=== PATIENT | male | born 1955 | race Caucasian/White ===

== ENCOUNTER 2016-09-19 11:23 | Day surgery (SDC) | payer OTHER ==
--- NOTE | ~2016-09-19 | EGD ---
EGD REPORT [facility] [address] [place] [address] NAME: SATISH COFFMAN : [birth year] STATUS : REG [facility]#: [id number] AGE: 61 ADM/REG DATE : 09/19/16 MR#: [id number] REPORT SERV DATE: 09/19/16 DICTATED BY: YUNG HARRIS DATE: 09/19/16 REPORT STATUS : Draft TRANSCRIBED BY: [facility] DATE: 09/19/16 Endoscopy Center Patient Name: Satish Coffman Date of : 1955 Attending MD: KARL HARRIS MD Procedure Date No Time: 09/19/2016 Procedure: Upper GI endoscopy Indications: Dysphagia, Gastro-esophageal reflux disease, Chronic cough Referring MD: FRANKIE BORJA MD Medicines: See the Anesthesia note for documentation of the administered medications Complications: No immediate complications. Estimated blood loss: Minimal. Procedure: Pre-Anesthesia Assessment: - ASA Grade Assessment: III - A patient with severe systemic disease. - Prior to the procedure, a History and Physical was performed, and patient medications and allergies were reviewed. The patient's tolerance of previous anesthesia was also reviewed. The risks and benefits of the procedure and the sedation options and risks were discussed with the patient. All questions were answered, and informed consent was obtained. Prior Anticoagulants: The patient has taken aspirin and ibuprofen, last doses were 2 days prior to procedure. After reviewing the risks and benefits, the patient was deemed in satisfactory condition to undergo the procedure. After obtaining informed consent, the endoscope was passed under direct vision. Throughout the procedure, the patient's blood pressure, pulse, and oxygen saturations were monitored continuously. The GIF H190 [id number] was introduced through the mouth, and advanced to the second part of duodenum. The upper GI endoscopy was accomplished without difficulty. The patient tolerated the procedure well. The upper GI endoscopy was accomplished without difficulty. The patient tolerated the procedure well. Findings: The examined duodenum was normal. Diffuse moderate inflammation characterized by congestion (edema) and erythema was found in the gastric antrum. Biopsies were taken with a cold forceps for histology. The cardia and gastric fundus were normal on retroflexion. EGD REPORT [address] [address] NAME: SATISH COFFMAN : [birth year] STATUS : REG [facility] [place] PAT#: [id number] AGE: 61 ADM/REG DATE : 09/19/16 MR#: [id number] REPORT SERV DATE: 09/19/16 DICTATED BY: YUNG HARRIS DATE: 09/19/16 REPORT STATUS : Draft TRANSCRIBED BY: [facility] DATE: 09/19/16 Diffuse mild erythema was found at the gastroesophageal junction. Biopsies were taken with a cold forceps for histology. The examined esophagus was normal. A guidewire was placed and the scope was withdrawn. Dilation was performed with a Savary dilator with no resistance at 54 Fr. Estimated blood loss: none. Impression: - Normal examined duodenum. - Gastritis. Biopsied. - Erythema at the gastroesophageal junction. Biopsied. - Normal esophagus. Dilated. Recommendation: - Patient has a contact number available for emergencies. The signs and symptoms of potential delayed complications were discussed with the patient. Return to normal activities tomorrow. Written discharge instructions were provided to the patient. - Regular diet. - Discharge patient to home. - Continue present medications. - Await pathology results. Procedure Code(s): --- Professional --- 14699, Esophagogastroduodenoscopy, flexible, transoral; with insertion of guide wire followed by passage of dilator(s) through esophagus over guide wire 08973, Esophagogastroduodenoscopy, flexible, transoral; with biopsy, single or multiple Diagnosis Code(s): --- Professional --- K29.70, Gastritis, unspecified, without bleeding K22.9, Disease of esophagus, unspecified R13.10, Dysphagia, unspecified K21.9, Gastro-esophageal reflux disease without esophagitis R05, Cough CPT copyright 2013 [employer]. All rights reserved. The codes documented in this report are preliminary and upon dye mixer review may be revised to meet current compliance requirements. KARL HARRIS MD 09/19/2016 1:16 PM This report has been signed electronically. Number of Addenda: 0 EGD REPORT [facility] [address] [place] [address] NAME: SATISH COFFMAN : [birth year] STATUS : REG [facility] [place] PAT#: [id number] AGE: 61 ADM/REG DATE : 09/19/16 MR#: [id number] REPORT SERV DATE: 09/19/16 DICTATED BY: YUNG HARRIS DATE: 09/19/16 REPORT STATUS : Draft TRANSCRIBED BY: [employer] DATE: 09/19/16 Note Initiated On: 09/19/2016 12:58 PM Scope Withdrawal Time 0 hours 0 minutes 0 seconds [address] [place] [id number]
--- NOTE | ~2016-09-19 | EGD ---
EGD REPORT [facility] [address] [place] [address] NAME: SATISH COFFMAN : 53 STATUS : REG [facility]#: [id number] AGE: 61 ADM/REG DATE : 09/19/16 MR#: [id number] REPORT SERV DATE: 09/19/16 DICTATED BY: YUNG HARRIS DATE: 09/19/16 REPORT STATUS : Draft [facility]: [facility] DATE: 09/19/16 Endoscopy Center Patient Name: Satish Coffman Date of : 1955 Attending MD: KARL HARRIS MD Procedure Date No Time: 09/19/2016 Procedure: Colonoscopy Indications: Personal history of colonic polyps Referring MD: FRANKIE BORJA MD Medicines: See the Anesthesia note for documentation of the administered medications Complications: No immediate complications. Estimated blood loss: None. Procedure: Pre-Anesthesia Assessment: - ASA Grade Assessment: III - A patient with severe systemic disease. - Prior to the procedure, a History and Physical was performed, and patient medications and allergies were reviewed. The patient's tolerance of previous anesthesia was also reviewed. The risks and benefits of the procedure and the sedation options and risks were discussed with the patient. All questions were answered, and informed consent was obtained. Prior Anticoagulants: The patient has taken aspirin and ibuprofen, last doses were 2 days prior to procedure. After reviewing the risks and benefits, the patient was deemed in satisfactory condition to undergo the procedure. After I obtained informed consent, the scope was passed under direct vision. Throughout the procedure, the patient's blood pressure, pulse, and oxygen saturations were monitored continuously. The PCF [id number] was introduced through the anus and advanced to the cecum, identified by appendiceal orifice and ileocecal valve. The ileocecal valve, appendiceal orifice and rectum were photographed. The entire colon was examined. The colonoscopy was performed without difficulty. The patient tolerated the procedure well. The quality of the bowel preparation was adequate. Findings: The perianal and digital rectal examinations were normal. A sessile polyp was found in the cecum. The polyp was diminutive in size. The polyp was removed with a cold biopsy forceps. Resection and retrieval were complete. A sessile polyp was found in the transverse colon. The polyp was small in size. The polyp was removed with a cold biopsy forceps. Resection and EGD REPORT [address] [address] NAME: SATISH COFFMAN : 53 STATUS : REG [facility]#: [id number] AGE: 61 ADM/REG DATE : 09/19/16 MR#: [id number] REPORT SERV DATE: 09/19/16 DICTATED BY: YUNG HARRIS DATE: 09/19/16 REPORT STATUS : Draft TRANSCRIBED BY: [facility] DATE: 09/19/16 retrieval were complete. A sessile polyp was found in the sigmoid colon. The polyp was small in size. The polyp was removed with a cold biopsy forceps. Resection and retrieval were complete. Non-bleeding internal hemorrhoids were found during retroflexion and were Grade I (internal hemorrhoids that do not prolapse). No other significant abnormalities were identified in a careful examination of the remainder of the colon. Impression: - One diminutive polyp in the cecum. Resected and retrieved. - One small polyp in the transverse colon. Resected and retrieved. - One small polyp in the sigmoid colon. Resected and retrieved. - Non-bleeding internal hemorrhoids. Recommendation: - Patient has a contact number available for emergencies. The signs and symptoms of potential delayed complications were discussed with the patient. Return to normal activities tomorrow. Written discharge instructions were provided to the patient. - Regular diet. - Discharge patient to home. - Continue present medications. - Await pathology results. - Repeat colonoscopy in 5-10 years for surveillance based on pathology results. Procedure Code(s): --- Professional --- 56851, Colonoscopy, flexible, proximal to splenic flexure; with biopsy, single or multiple Diagnosis Code(s): --- Professional --- D12.5, Benign neoplasm of sigmoid colon D12.3, Benign neoplasm of transverse colon D12.0, Benign neoplasm of cecum K64.0, First degree hemorrhoids Z86.010, Personal history of colonic polyps CPT copyright 2013 [employer]. All rights reserved. The codes documented in this report are preliminary and upon dude ranch manager review may be revised to meet current compliance requirements. EGD REPORT [facility] [address] [address] NAME: SATISH COFFMAN : [birth year] STATUS : REG [facility] [place] PAT#: [id number] AGE: 61 ADM/REG DATE : 09/19/16 MR#: [id number] REPORT SERV DATE: 09/19/16 DICTATED BY: YUNG HARRIS DATE: 09/19/16 REPORT STATUS : Draft TRANSCRIBED BY: [employer] DATE: 09/19/16 KARL HARRIS MD 09/19/2016 1:32 PM This report has been signed electronically. Number of Addenda: 0 Note Initiated On: 09/19/2016 12:55 PM Scope Withdrawal Time 0 hours 12 minutes 14 seconds [address] [id number]
[~2016-09-19 11:23] MED LIST: ALLEGRA180 PO; ASAB PO; ATIVAN2 MG PO; ATRONASAL6 NAS; CYANO1000T PO; FERROUS SULF325 M1 PO; FISH OIL1200 MG PO; HYDROCHLOROT25 MG PO; IBU-200200 MG PO; KLOR-CON 1010 MEQ PO; L40 PO; LAMICTAL XR200 MG PO; LEVOTHYROXIN50 MCG PO; LEXAPRO20 PO; LOP50 PO; NEUR100 PO; NEUR300 PO; NORCO1 TAB PO; NORV5 PO; NUVIGIL250 MG PO; PROTONIX PO; VASCEPA1 GM PO; VITA D2 PO; VITAMIN D31000 UNIT PO; WELLXL300 PO; Z100 PO
== END 2016-09-19 23:59 | disposition home health service (06) ==
LOC: DMU 11:23
PROVIDERS: Internal Medicine Gastroenterology
PROC: 0DBH8ZX Excision of Cecum, Via Natural or Artificial Opening Endoscopic, Diagnostic (ICD-10-PCS; 2016-09-19)
PROC: 0DBN8ZX Excision of Sigmoid Colon, Via Natural or Artificial Opening Endoscopic, Diagnostic (ICD-10-PCS; 2016-09-19)
PROC: 0DBL8ZX Excision of Transverse Colon, Via Natural or Artificial Opening Endoscopic, Diagnostic (ICD-10-PCS; 2016-09-19)
PROC: 0DB68ZX Excision of Stomach, Via Natural or Artificial Opening Endoscopic, Diagnostic (ICD-10-PCS; principal; 2016-09-19 12:30)
PROC: 0DB48ZX Excision of Esophagogastric Junction, Via Natural or Artificial Opening Endoscopic, Diagnostic (ICD-10-PCS; 2016-09-19 12:30)
PROC: 0D758ZZ Dilation of Esophagus, Via Natural or Artificial Opening Endoscopic (ICD-10-PCS; 2016-09-19 12:30)
DX: D12.0 Benign neoplasm of cecum (principal); K29.50 Unspecified chronic gastritis without bleeding; K64.0 First degree hemorrhoids; I10 Essential (primary) hypertension; G47.33 Obstructive sleep apnea (adult) (pediatric); E03.9 Hypothyroidism, unspecified; D50.9 Iron deficiency anemia, unspecified; F41.9 Anxiety disorder, unspecified; F41.0 Panic disorder [episodic paroxysmal anxiety]; K21.9 Gastro-esophageal reflux disease without esophagitis; F32.9 Major depressive disorder, single episode, unspecified; E78.00 Pure hypercholesterolemia, unspecified; Z86.010 Personal history of colon polyps; Z88.8 Allergy status to other drugs, medicaments and biological substances; Z99.81 Dependence on supplemental oxygen; Z98.890 Other specified postprocedural states
CPT/HCPCS: 88305